=== PATIENT | male | born 1970 | race Caucasian/White ===

== ENCOUNTER 2016-04-23 17:01 | Inpatient (IN) | payer OTHER ==
[~2016-04-23] VITALS: Ht 167.6 cm; Wt 69.0 kg
[~2016-04-23 17:01] MED LIST: BENZ2TAB10 PO; CARB200T6 PO; DIPH25CA85 PO; DOCU250C91 PO; EPINEPHrine 1:10,000 [1 MG/10 ML] SYRINGE IVP ONE; ETOMIDATE 2 MG/ML 10 ML VIAL IVP ONE; LACT30L PO; LAMO100 PO; NALT50TA4 PO; OLAN7.5T2 PO; PHEN32.43 PO; RISP1 PO; RISP2 PO; SIMV-260 PO; TAMS0.4C32 PO; VECURONIUM BROMIDE 10 MG/VIAL IVP ONE; [UNRECOGNIZED DRUG - CODE] PO
[2016-04-23 19:06] LABS: BASOPHILS % (AUTO) 0.1 % (0.0-2.0); EOSINOPHILS % (AUTO) 0 % (1.0-6.0); HEMATOCRIT 46.9 % (41-53); HEMOGLOBIN 15.8 g/dL (13.5-17.5); LYMPHOCYTES # (AUTO) 0.4 K/uL (1.0-4.8); MEAN CORPUSCULAR HGB CONC 33.6 G/dL (31.0-37.0); MEAN CORPUSCULAR VOLUME 95 fL (80-100); MONOCYTES # (AUTO) 0.5 K/uL (0.1-1.0); MONOCYTES % (AUTO) 4.6 % (2.0-9.0); NEUTROPHILS # (AUTO) 11.1 K/uL (1.8-7.7); PLATELET COUNT (AUTO) 250 K/uL (150-450); RED BLOOD CELL COUNT(AUTO) 4.92 MIL/uL (4.50-5.90); RED CELL DISTRIBUTION WIDTH 12.5 % (11.5-14.5)
[2016-04-23 19:09] LABS: NEUTROPHILS % (AUTO) 92.3 % (40.0-70.0)
[2016-04-23 19:20] LABS: ANION GAP 16 mmol/L (8-16); CALCIUM, TOTAL 9.2 mg/dL (8.8-10.5); CARBON DIOXIDE 24 mmol/L (22-29); CHLORIDE 88 mmol/L (98-107); CREATININE 1.58 mg/dL (0.60-1.30); GLOMERULAR FILTR. RATE CALC 47 mL/min (>60); POTASSIUM 3.5 mmol/L (3.5-5.1); SODIUM SERUM 128 mmol/L (136-145); UREA NITROGEN, BLOOD 21 mg/dL (7-18)
[2016-04-23 19:24] LABS: ALANINE AMINOTRANSFERASE 37 U/L (12-78); ALBUMIN 4.6 g/dL (3.4-5.0); ASPARTATE AMINOTRANSFERASE 21 U/L (15-37); BILIRUBIN,TOTAL 0.5 mg/dL (0.1-1.0); TOTAL PROTEIN, SERUM 8.7 g/dL (6.4-8.2)
[2016-04-23 19:40] LABS: RBC MORPHOLOGY COMMENT NORMAL RBC MORPH
[2016-04-23] MEDS ORDERED: VECURONIUM BROMIDE 10 MG/VIAL IVP ONE (20:00)
[2016-04-23] MEDS ORDERED: SUCCINYLCHOLINE CHLORIDE 20 MG/ML 10 ML VIAL IVP ONE (20:00)
[2016-04-23] MEDS ORDERED: SODIUM CHLORIDE 0.9% 2,000 ML IV ONE (20:00)
[2016-04-23] MEDS ORDERED: ETOMIDATE 2 MG/ML 10 ML VIAL IVP ONE (20:00)
[2016-04-23 20:16] LABS: PROTHROMBIN TIME 10.9 SEC (9.4-11.6)
[2016-04-23 20:21] LABS: GLUCOSE,POINT OF CARE 423 MG/DL (70-110)
[2016-04-23 20:28] LABS: CREATINE KINASE MB 1.9 ng/mL (0-5); CREATINE KINASE, TOTAL 96 U/L (39-308)
[2016-04-23 20:30] LABS: B-TYPE NATRIURETIC PEPTIDE 7 pg/mL (0-100)
[2016-04-23] MEDS ORDERED: LACTULOSE 20 GM/30 ML SOLUTION UDCUP NG ONE (21:00)
[2016-04-23] MEDS ORDERED: INSULIN REGULAR, HUMAN 100 UNITS/ML IVP ONE (21:00)
[2016-04-23 21:25] LABS: PHENOBARBITAL 22 mcg/mL (15-40)
[2016-04-23 21:25] LABS: APPEARANCE,URINE CLOUDY (CLEAR); GLUCOSE, URINE (UA) NEGATIVE (NEGATIVE); KETONES,URINE TRACE mg/dL (NEGATIVE); LEUKOCYTE ESTERASE ,URINE MODERATE (NEGATIVE); OCCULT BLOOD,URINE SMALL (NEGATIVE); PROTEIN,URINE POS 1+ (NEGATIVE)
[2016-04-23] MEDS ORDERED: CefTRIAXone 1 GM/DEXTROSE 50 ML IV ONE (21:30)
[2016-04-23] MEDS ORDERED: ONDANSETRON HCL 4 MG/2 ML VIAL IVP PRN (21:30)
[2016-04-23] MEDS ORDERED: 0.9% SODIUM CHLORIDE 10 ML SYRINGE IVP PRN (21:30)
[2016-04-23 21:44] LABS: ABG A-A DIFF O2 539.8 mmHg (10-20.0); ABG BASE EXCESS -16.6 mmol/L (-2.0-3.0); ABG HCO3 11.2 mmol/L (22.0-26.0); ABG OXYHEMOGLOBIN 88.4 % (94.0-100.0); TEMPERATURE, FAHRENHEIT, BG 98.6 FAHREN (96.0-98.6)
[2016-04-23 21:45] LABS: ABG PCO2 83 mmHg (35-45); ABG PH 6.907 (7.35-7.450)
[2016-04-23 21:51] LABS: ADD UA MICROSCOPIC YES
[2016-04-23 21:53] LABS: SQUAMOUS EPITHELIAL CELL,UR Few /LPF (None Seen)
[2016-04-23 21:54] LABS: WBC,URINE 26-50 /HPF (0-5)
[2016-04-23] MEDS ORDERED: PIPERACILLIN/TAZO 3.375 GM/D5W 50 ML IV ONE (22:00)
[2016-04-23] MEDS ORDERED: SODIUM BICARBONATE 150 MEQ in DEXTROSE 5%-WATER 1,000 ML IV ONE (22:00)
[2016-04-23] MEDS ORDERED: SODIUM BICARBONATE [ADULT] 8.4% 50 MEQ/50 ML SYRINGE IVP ONE ×2 (22:00→23:30)
[2016-04-23] MEDS ORDERED: NOREPINEPHRINE 4 MG/D5%-WATER 250 ML IV PRN (23:15)
[2016-04-23] MEDS ORDERED: SODIUM BICARBONATE 50 MEQ/50 ML VIAL IVP ONE (23:15)
[2016-04-23 23:16] LABS: ABG A-A DIFF O2 570.4 mmHg (10-20.0); ABG BASE EXCESS -13.5 mmol/L (-2.0-3.0); ABG HCO3 13.6 mmol/L (22.0-26.0); ABG OXYHEMOGLOBIN 87.6 % (94.0-100.0); ABG PCO2 63 mmHg (35-45); ABG PH 7.047 (7.35-7.450); ALLEN TEST, BLOOD GAS Positive; TEMPERATURE, FAHRENHEIT, BG 98.6 FAHREN (96.0-98.6)
[2016-04-23 23:35] VITALS: BP 62/31
[2016-04-24] MEDS ORDERED: ATROPINE SULFATE 0.1 MG/ML 10 ML SYRINGE IVP ONE (00:07)
[2016-04-24] MEDS ORDERED: DOPamine HCL 400 MG/D5%-WATER 250 ML IV ONE (00:08)
[2016-04-24] MEDS ORDERED: PHENYLEPHRINE 200 MG/D5%-WATER 250 ML IV ONE (00:09)
[2016-04-24] MEDS ORDERED: VASOPRESSIN 100 UNITS in DEXTROSE 5%-WATER 245 ML IV PRN (00:15)
[2016-04-24] MEDS ORDERED: DOPamine HCL 400 MG/D5%-WATER 250 ML IV PRN (00:30)
[2016-04-24] MEDS ORDERED: PHENYLEPHRINE 200 MG/D5%-WATER 250 ML IV PRN (00:30)
[2016-04-24 10:06] LABS: GLUCOSE,POINT OF CARE 482 MG/DL (70-110)
== END 2016-04-24 00:16 | disposition expired | DRG 133 ==
LOC: EMS 17:04 → ICU 20:15
PROVIDERS: ADMIT Family Medicine; ATTEND Family Medicine
PROC: 5A1935Z Respiratory Ventilation, Less than 24 Consecutive Hours (ICD-10-PCS; principal; 2016-04-23)
PROC: 0BH17EZ Insertion of Endotracheal Airway into Trachea, Via Natural or Artificial Opening (ICD-10-PCS; 2016-04-23)
PROC: 5A12012 Performance of Cardiac Output, Single, Manual (ICD-10-PCS; 2016-04-24)
DX: J96.91 Respiratory failure, unspecified with hypoxia (principal); J69.0 Pneumonitis due to inhalation of food and vomit; K56.60 Unspecified intestinal obstruction; E87.4 Mixed disorder of acid-base balance; F79 Unspecified intellectual disabilities; K72.90 Hepatic failure, unspecified without coma; E87.1 Hypo-osmolality and hyponatremia; R73.9 Hyperglycemia, unspecified; Z79.899 Other long term (current) drug therapy
CPT/HCPCS: 31500; 51702; 70450; 74176; 82805; 82962; 87040; 87086; 92950; 93005; 94002; 96361; 96365; 96367; 96375; 99291; 99292; G0480; J0171; J0461; J0696; J1265; J1815; J2370; J2543; J3490; J7030; J7060